=== PATIENT | female | born 1980 | race Caucasian/White ===

== ENCOUNTER → 2016-12-10 | Outpatient (CLI) | payer OTHER ==
[~2016-12-10] MED LIST: LIDOCAINE 1%, 20ML ONE; ROPIvacaine/PF 0.2%, 20 ML ONE; TRIAMCINOLONE ACETONIDE 40 MG/ML, 1ML ONE
== END | disposition home or self-care (01) ==
LOC: CFH 14:05
PROVIDERS: ATTEND Nurse Practitioner
DX: M25.371 Other instability, right ankle (principal)
CPT/HCPCS: 77002; J2795; J3301; J3490